=== PATIENT | female | born 1995 | race Two or more races ===

== ENCOUNTER 2023-11-06 01:23 | Emergency (ER) | payer BC, OTHER ==
[~2023-11-06] VITALS: Ht 157.5 cm; Wt 75.0 kg
[2023-11-06 01:41] VITALS: BP 143/88; PULSE 98; RESP 18; TEMP 98; O2SAT 97
[2023-11-06 01:53] LABS: Urine Bacteria None Seen /hpf (None Seen)
[2023-11-06 02:06] LABS: Urine Blood 3+ /uL (Negative); Urine Clarity Clear (Clear); Urine Color Yellow (Yellow); Urine Mucus FEW (None Seen); Urine Protein, UAD 1+ (Negative); Urine Specific Gravity 1.039 (1.001-1.035); Urine Urobilinogen Normal (Negative); Urine WBC 1 /hpf (0 - 5)
[2023-11-06] MEDS: ONDANSETRON ODT 4 MG TAB PO ONE (02:25)
[2023-11-06 02:46] LABS: Basophils # (auto) 0.1 10 ^3/uL (0-0.2); Basophils % (auto) 0.8 % (0.0-2.0); Eosinophils # (auto) 0.1 10 ^3/uL (0-0.8); Eosinophils % (auto) 0.9 % (0.0-7.0); Hematocrit 43.2 % (36.0-46.0); Hemoglobin 14.4 g/dL (12.2-16.2); Lymphocytes # (auto) 2.6 10 ^3/uL (0.4-5.4); Lymphocytes % (auto) 24.5 % (10.0-50.0); Mean Corpuscular Hemoglobin 28.4 pg (28.0-32.0); Mean Corpuscular Hgb Conc. 33.2 g/dL (32.0-36.0); Mean Corpuscular Volume 85.5 fL (80.0-100.0); Monocytes # (auto) 1.1 10 ^3/uL (0-1.3); Monocytes % (auto) 10.4 % (0.0-12.0); Neutrophils # (auto) 6.6 10 ^3/uL (1.6-8.6); Neutrophils % (auto) 63.4 % (37.0-80.0); Red Blood Cells 5.05 10^6/uL (4.0-5.20); Red Cell Distribution Width 13.6 % (11.8-14.3); White Blood Cell 10.5 10^3/uL (4.4-10.8)
[2023-11-06 02:53] LABS: Alanine Aminotransferase 12 U/L (7-40); Albumin 4.1 g/dL (3.2-4.8); Alkaline Phosphatase 82 U/L (46-116); Anion Gap 8 (5-15); Aspartate Aminotransferase 19 U/L (13-40); BUN/Creatinine Ratio 15.1 (10.0-20.0); Bilirubin, Total 0.4 mg/dL (0.2-1.0); Blood Urea Nitrogen 11 mg/dL (9-23); Calcium 10.3 mg/dL (8.7-10.4); Carbon Dioxide 26 mmol/L (20-30); Chloride 107 mmol/L (98-107); Glucose 98 mg/dL (74-106); Lipase 35 U/L (12-53); Potassium 3.5 mmol/L (3.5-5.1); Sodium 141 mmol/L (136-145); Total Protein 6.9 g/dL (5.7-8.2)
[2023-11-06] MEDS ORDERED: FAMO20TA10 PO (03:38)
[2023-11-06] MEDS: MAALOX PLUS or MAALOX 30 ML PO ONE (04:01)
[2023-11-06] MEDS: SODIUM CHLORIDE 0.9% 1,000 ML IVB ONE (04:02)
== END 2023-11-06 05:06 | disposition home or self-care (01) ==
LOC: ER 01:23
DX: K29.70 Gastritis, unspecified, without bleeding (principal); Z79.899 Other long term (current) drug therapy
CPT/HCPCS: 36415; 74176; 80053; 81001; 81025; 83605; 83690; 85025; 96360; 99284; J7030; Q0162

== ENCOUNTER 2024-09-05 11:00 | Emergency (ER) | payer BC ==
[~2024-09-05] VITALS: Ht 157.5 cm; Wt 76.7 kg
[~2024-09-05 11:00] MED LIST: FAMO20TA10 PO
[2024-09-05 11:17] VITALS: BP 149/99; PULSE 94; RESP 19; TEMP 98.3; O2SAT 99
--- NOTE | 2024-09-05 11:18 | ED.PDOC ---
History of Present Illness HPI Comments 29-year-old female presents with a chief complaint of a Jesus Cyst. Patient mentions that she has had these intermittently for the past 5 years and has had it drained once before. Patient denies seeing an HEALTH CARE MANAGER for this. Patient mentions that she attempted to see an HEALTH CARE MANAGER but was "dismissed and told not to have sex". Patient is on her menstrual cycle at this time. Chief Complaint: Abscess Time Seen by MD: 11:09 Reviewed Notes: Nurses Notes, Medications, Allergies Allergies: Coded Allergies: NO KNOWN ALLERGIES (Unverified , 11/06/23) Home Meds Active Scripts Doxycycline Hyclate (DOXYCYCLINE HYCLATE) 100 Mg Tab, 1 TAB PO BID, #14 TAB Prov:MICHAEL BOONE MD 09/05/24 Famotidine (PEPCID TABLET) 20 Mg Tb, 1 TAB PO BID, #60 TAB 5 Refills Prov:KARUNA SIDDIQI DO 11/06/23 Information Source: Patient Mode of Arrival: Ambulatory Severity: Moderate Timing: Months Duration: Intermittent Prehospital treatment: None Past Medical History Past Medical History (Other): JESUS CYST Surgical History: Denies all surgeries [employer] History: No Pertinent [employer]OR History Family History Family History: Reviewed,noncontributory to illness Social History Smoker: Non-Smoker Alcohol: Rarely Drugs: Denies Drug Use Lives In: Home Constitutional: denies: chills, diaphoresis, fatigue, fever, malaise, sweats, weakness, others EENTM: denies: blurred vision, double vision, ear bleeding, ear discharge, ear drainage, ear pain, ear ringing, eye pain, eye redness, hearing loss, mouth pain, mouth swelling, nasal discharge, nose bleeding, nose congestion, nose pain, photophobia, tearing, throat pain, throat swelling, voice changes, others Respiratory: denies: cough, hemoptysis, orthopnea, SOB at rest, shortness of breath, SOB with excertion, stridor, wheezing, others Cardiovascular: denies: chest pain, dizzy spells, diaphoresis, Dyspnea on exertion, edema, irregular heart beat, left arm pain, lightheadedness, palpitations, PND, syncope, others Gastrointestinal: denies: abdomen distended, abdominal pain, blood streaked bowels, constipated, diarrhea, dysphagia, difficulty swallowing, hematemesis, melena, nausea, poor appetite, poor fluid intake, rectal bleeding, rectal pain, vomiting, others Genitourinary: denies: abnormal vagina bleeding, burning, dyspareunia, dysuria, flank pain, frequency, hematuria, incontinence, pain, , vagina discharge, urgency, others Neurological: denies: dizziness, fainting, headache, left sided numbness, left sided weakness, numbness, paresthesia, pre-existing deficit, right sided numbness, right sided weakness, seizure, speech problems, tingling, tremors, weakness, others Musculoskeletal: denies: back pain, gout, joint pain, joint swelling, muscle pain, muscle stiffness, neck pain, others Integumetry: reports: others (JESUS CYST); denies: bruises, change in color, change in hair/nails, dryness, laceration, lesions, lumps, rash, wounds Allergic/Immunocompromised: denies: Difficulty Healing, Frequent Infections, Hives, Itching, others Hematologic/Lymphatic: denies: anemia, blood clots, easy bleeding, easy bruising, swollen glands, others Endocrine: denies: excessive hunger, excessive sweating, excessive thirst, excessive urination, flushing, intolerance to cold, intolerance to heat, unexplained weight gain, unexplained weight loss, others Psychiatric: denies: anxiety, bipolar disorder, depression, hopeless, panic disorder, schizophrenia, sleepless, suicidal, others All Other Systems: Reviewed and Negative Physical Exam General Appearance: Mild Distress HEENT: Normal ENT Inspection, Pharynx Normal, TMs Normal Neck: Full Range of Motion, Non-Tender, Normal, Normal Inspection Respiratory: Chest Non-Tender, Lungs Clear, No Accessory Muscle Use, No Respiratory Distress, Normal Breath Sounds Cardiovascular: No Edema, No JVD, No Murmur, No Gallop, Normal Peripheral Pulses, Regular Rate/Rhythm Breast Exam: Deferred Gastrointestinal: No Organomegaly, Non Tender, No Pulsatile Mass, Normal Bowel Sounds, Soft Genitalia: Deferred Pelvic: Other (There is tenderness to the left labium consistent with possible deep mass with mild tenderness to palpation) Rectal: Deferred Extremities: No calf tenderness, Normal capillary refill, Normal inspection, Normal range of motion, Non-tender, No pedal edema Musculoskeletal : Apperance: Normal Neurologic: Alert, youth ministry director II-XII nml as Tested, No Motor Deficits, Normal Affect, Normal Mood, No Sensory Deficits Cerebellar Function: Normal Reflexes: Normal Skin: Dry, Normal Color, Warm Lymphatic: No Adenopathy Was a procedure done? Was a procedure done?: No Differential Dx Considerations may include: Bartholin cyst, cyst, abscess X-Ray, Labs, Meds, VS Vital Signs Date Time Temp Pulse Resp B/P (MAP) Pulse Ox O2 Delivery O2 Flow Rate FiO2 09/05/24 11:17 94 19 99 Room Air 09/05/24 11:17 98.3 94 19 149/99 (116) 99 98.3 09/05/24 11:14 98.3 94 19 149/99 (116) 99 98.3 At this time, the patient was being discharged The patient will follow up with the primary care doctor The patient will return to the emergency department's condition worsens. The patient was given a prescription of doxycycline The patient was also given Rocephin IM. The patient was told to follow up with her OBGYN. Time of 1ST Reevaluation: 11:39 Reevaluation 1ST: Unchanged Patient Education/Counseling: Diagnosis, Treatment, Prognosis, Need For Follow Up Family Education/Counseling: No Family Present Departure 1 Departure Time of Disposition: 11:30 Impression: Primary Impression: Labial infection Disposition: 01 HOME / SELF CARE / HOMELESS Condition: Fair e-Prescriptions Doxycycline Hyclate (DOXYCYCLINE HYCLATE) 100 Mg Tab 1 TAB PO BID, #14 TAB Prov: MICHAEL BOONE MD 09/05/24 Discharged With: Self Critical Care Note Critical Care Time?: No Stability Stability form required: No Heart Score Heart Score: Heart Score Response (Comments) Value History N/A 0 EKG N/A 0 Age N/A 0 Risk Factors N/A 0 Troponin N/A 0 Total 0 I personally scribed for MICHAEL BOONE MD ([email or web address]) on 09/05/24 at 11:18. Electronically submitted by Jeffery Ambrocio ([email or web address]). MICHAEL BOONE MD Sep 05, 2024 11:18
[2024-09-05] MEDS: IBUPROFEN 800 MG TAB PO ONE (11:31)
[2024-09-05] MEDS ORDERED: DOXY-286 PO (11:31)
[2024-09-05] MEDS: cefTRIAXone SODIUM 250 MG VL IM ONE (11:31)
== END 2024-09-05 11:36 | disposition home or self-care (01) ==
LOC: ER 11:00
DX: N76.2 Acute vulvitis (principal); Z79.899 Other long term (current) drug therapy
CPT/HCPCS: 96372; 99283; J0696